=== PATIENT | female | born 1930 | race Caucasian/White ===

== ENCOUNTER 2016-08-15 15:04 | Inpatient (IN) | payer MEDICARE, SELFPAY ==
[~2016-08-15] VITALS: Ht 162.6 cm; Wt 103.0 kg
[2016-08-15 16:27] LABS: BASO % 0.2 % (0.1-1.2); EOS % 0.8 % (0.7-5.8); GRAN # 3.6 10_X3_uL (1.6-6.1); GRAN % 70.1 % (34.0-71.1); HEMATOCRIT 32.8 % (34-45); HEMOGLOBIN 10.9 g/dL (11.2-15.7); LYMPH % 19.8 % (19.3-51.7); MEAN CORPUSCULAR HEMOGLOBIN 28.8 pg (27.0-33.0); MEAN CORPUSCULAR HGB CONC 33.2 g/dL (32.0-36.0); MEAN CORPUSCULAR VOLUME 86.8 fL (79-95); MEAN PLATELET VOLUME 10.4 fl (7.5-11.5); MONO # 0.5 10_X3_uL (0.2-0.9); MONO % 9.1 % (4.7-12.5); PLATELET COUNT 136 x10_3/uL (182-369); RED BLOOD COUNT 3.78 x10_6/uL (3.9-5.2); RED CELL DISTRIBUTION WIDTH 14.5 % (11.7-14.4); WHITE BLOOD COUNT 5.2 x10_3/uL (4.0-10.0)
[2016-08-15 16:50] LABS: ALBUMIN 3.7 gm/dL (3.4-5.0); BILIRUBIN,TOTAL 0.23 mg/dL (0.0-1.0); CREATININE 2.3 mg/dL (0.6-1.3); TOTAL PROTEIN 7.1 gm/dL (6.4-8.2)
[2016-08-15 16:52] LABS: POTASSIUM 4.9 mmol/L (3.5-5.1)
[2016-08-15 22:16] LABS: ARTERIAL BLD GAS O2 SATURATION 90.3 % (94-98); ARTERIAL BLOOD GAS BASE EXCESS -3.4 mmol/L (-2.0-3.0); ARTERIAL BLOOD GAS HCO3 21.7 mmol/L (22-26); ARTERIAL BLOOD GAS PCO2 41.8 mmHg (32-45); ARTERIAL BLOOD GAS pH 7.33 (7.35-7.45)
[2016-08-16 07:31] LABS: HEMATOCRIT 29.8 % (34-45); HEMOGLOBIN 9.6 g/dL (11.2-15.7); MEAN CORPUSCULAR HEMOGLOBIN 28.1 pg (27.0-33.0); MEAN CORPUSCULAR HGB CONC 32.2 g/dL (32.0-36.0); MEAN CORPUSCULAR VOLUME 87.1 fL (79-95); MEAN PLATELET VOLUME 10.2 fl (7.5-11.5); RED BLOOD COUNT 3.42 x10_6/uL (3.9-5.2); RED CELL DISTRIBUTION WIDTH 14.3 % (11.7-14.4)
[2016-08-16 07:50] LABS: CALCIUM 7.6 mg/dL (8.7-10.7); CREATININE 2.5 mg/dL (0.6-1.3); POTASSIUM 4.6 mmol/L (3.5-5.1)
[2016-08-16 08:27] LABS: PH,URINE 6.5 (5.0 - 9.0); URINE BILIRUBIN NEGATIVE (NEGATIVE); URINE BLOOD 3+ (NEGATIVE); URINE GLUCOSE (UA) NORMAL (NORMAL); URINE KETONE TRACE (NEGATIVE); URINE LEUKOCYTE ESTERASE TRACE (NEGATIVE); URINE NITRATE NEGATIVE (NEGATIVE); URINE PROTEIN 3+ (NEGATIVE); UROBILINOGEN NORMAL mg/dL (<1.0)
[2016-08-16 08:35] LABS: URINE RBC TNTC /[HPF] (0-2)
[2016-08-17 06:56] LABS: BASO % 0.2 % (0.1-1.2); EOS # 0.1 10_X3_uL (0.0-0.4); EOS % 1.2 % (0.7-5.8); GRAN # 3.1 10_X3_uL (1.6-6.1); GRAN % 63.3 % (34.0-71.1); HEMOGLOBIN 10.6 g/dL (11.2-15.7); LYMPH # 1.3 10_X3_uL (1.2-3.7); MEAN CORPUSCULAR HGB CONC 32.1 g/dL (32.0-36.0); MEAN CORPUSCULAR VOLUME 87.3 fL (79-95); MEAN PLATELET VOLUME 10.4 fl (7.5-11.5); MONO # 0.4 10_X3_uL (0.2-0.9); MONO % 8.3 % (4.7-12.5); PLATELET COUNT 163 x10_3/uL (182-369); RED BLOOD COUNT 3.78 x10_6/uL (3.9-5.2); RED CELL DISTRIBUTION WIDTH 14.7 % (11.7-14.4); WHITE BLOOD COUNT 4.8 x10_3/uL (4.0-10.0)
[2016-08-17 07:01] LABS: ALBUMIN 3.6 gm/dL (3.4-5.0); BILIRUBIN,TOTAL 0.16 mg/dL (0.0-1.0); CALCIUM 7.6 mg/dL (8.7-10.7); CREATININE 2.8 mg/dL (0.6-1.3); POTASSIUM 5.1 mmol/L (3.5-5.1); TOTAL PROTEIN 6.9 gm/dL (6.4-8.2)
[2016-08-17 14:01] LABS: ARTERIAL BLD GAS O2 SATURATION 95.1 % (94-98); ARTERIAL BLOOD GAS BASE EXCESS -7.1 mmol/L (-2.0-3.0); ARTERIAL BLOOD GAS HCO3 19.6 mmol/L (22-26); ARTERIAL BLOOD GAS PCO2 46.9 mmHg (32-45); ARTERIAL BLOOD GAS pH 7.24 (7.35-7.45)
[2016-08-17 14:25] LABS: CALCIUM 7.8 mg/dL (8.7-10.7); CREATININE 2.7 mg/dL (0.6-1.3); MAGNESIUM 2.4 mg/dL (1.8-2.4); PHOSPHOROUS 6.4 mg/dL (2.5-4.9)
== END 2016-08-17 21:09 | disposition short-term general hospital (02) | DRG 193 ==
LOC: ER 15:04 → MS 18:06
PROVIDERS: General Practice; ADMIT Family Medicine
DX: J10.1 Influenza due to other identified influenza virus with other respiratory manifestations (principal); J96.01 Acute respiratory failure with hypoxia; I50.21 Acute systolic (congestive) heart failure; N17.9 Acute kidney failure, unspecified; I13.0 Hypertensive heart and chronic kidney disease with heart failure and stage 1 through stage 4 chronic kidney disease, or unspecified chronic kidney disease; E87.2 Acidosis; J18.9 Pneumonia, unspecified organism; N18.9 Chronic kidney disease, unspecified; E11.649 Type 2 diabetes mellitus with hypoglycemia without coma; E78.5 Hyperlipidemia, unspecified; J44.9 Chronic obstructive pulmonary disease, unspecified; I25.10 Atherosclerotic heart disease of native coronary artery without angina pectoris; R31.9 Hematuria, unspecified; Z79.899 Other long term (current) drug therapy; Z79.02 Long term (current) use of antithrombotics/antiplatelets; Z79.84 Long term (current) use of oral hypoglycemic drugs; Z79.82 Long term (current) use of aspirin
CPT/HCPCS: 36415; 36600; 71010; 71250; 76770; 80048; 80053; 80061; 81001; 82803; 82962; 83036; 83605; 83735; 83880; 84100; 84443; 85025; 86738; 87040; 87086; 87400; 87449; 93005; 94640; 94660; 94664; 99070; J7040; J7050

== ENCOUNTER 2016-08-15 15:04 | Emergency (ER) | payer MEDICARE, SELFPAY | END 2016-08-15 18:06 | disposition other institution (70) | LOC: ER 15:04 | DX: I50.9 Heart failure, unspecified (principal); J11.1 Influenza due to unidentified influenza virus with other respiratory manifestations; I73.9 Peripheral vascular disease, unspecified; R09.89 Other specified symptoms and signs involving the circulatory and respiratory systems; J84.9 Interstitial pulmonary disease, unspecified; E11.22 Type 2 diabetes mellitus with diabetic chronic kidney disease; N18.9 Chronic kidney disease, unspecified; R60.0 Localized edema; J44.9 Chronic obstructive pulmonary disease, unspecified; R53.1 Weakness | CPT/HCPCS: 99284; 99284-25 ==